=== PATIENT | male | born 1995 | race Caucasian/White ===

== ENCOUNTER 2020-05-07 18:40 | Emergency (ER) | payer MEDICAID ==
[~2020-05-07] VITALS: Ht 175.3 cm; Wt 71.1 kg
[2020-05-07 18:43] VITALS: BP 112/77
== END 2020-05-07 22:25 | disposition home or self-care (01) ==
LOC: ED 19:10
DX: S62.616A Displaced fracture of proximal phalanx of right little finger, initial encounter for closed fracture (principal); F17.200 Nicotine dependence, unspecified, uncomplicated; Y04.0XXA Assault by unarmed brawl or fight, initial encounter; Y93.89 Activity, other specified; Y92.009 Unspecified place in unspecified non-institutional (private) residence as the place of occurrence of the external cause; Y99.8 Other external cause status
CPT/HCPCS: 29130; 99283

== ENCOUNTER 2021-01-12 00:22 | Emergency (ER) | payer MEDICAID ==
[~2021-01-12] VITALS: Ht 175.3 cm; Wt 73.9 kg
[2021-01-12 00:26] VITALS: BP 136/82
[2021-01-12] MEDS ORDERED: LIDOCAINE 1%, 2ML INFIL ONE (01:00)
[2021-01-12] MEDS ORDERED: BUPIVACAINE 0.25% INFIL ONE (01:00)
[2021-01-12] MEDS ORDERED: BUPIVACAINE 0.25% ONE (01:09)
[2021-01-12] MEDS ORDERED: LIDOCAINE-MPF 1%, 2ML ONE (01:09)
== END 2021-01-12 02:09 | disposition home or self-care (01) ==
LOC: ED 01:45
DX: K04.7 Periapical abscess without sinus (principal); R51.9 Headache, unspecified; Z72.9 Problem related to lifestyle, unspecified; F17.210 Nicotine dependence, cigarettes, uncomplicated
CPT/HCPCS: 41800; 99284; 99406